=== PATIENT | male | born 1980 | race Hispanic/Latino ===

== ENCOUNTER 2020-05-30 18:24 | Emergency (ER) | payer OTHER, SELFPAY ==
--- NOTE | ~2020-05-30 | XR_ITS ---
EXAMINATION: XR chest 1V portable 05/30/2020 19:17 INDICATION: Shortness of breath. Anxiety. PROCEDURE: AP portable chest COMPARISON: No prior studies for comparison. FINDINGS: The lungs are clear. The cardiomediastinal silhouette is within normal limits. There are no pleural effusions. There is no pneumothorax suspected. IMPRESSION: 1: NO ACUTE CARDIOPULMONARY DISEASE. Reviewed, dictated and finalized at location A. [facility]
[2020-05-30 18:34] VITALS: BP 146/85; PULSE 83; RESP 16; TEMP 36.3; O2SAT 99
--- NOTE | 2020-05-30 18:51 | ECG_ITS ---
Measurements Intervals [place] Rate: 75 P: 15 IN: 166 QRS: 38 QRSD: 94 T: 30 QT: 373 QTc: 417 Interpretive Statements SINUS RHYTHM BASELINE ARTIFACT- III, AVL BORDERLINE ECG Electronically Signed On 05-31-2020 7:55:04 [employer] by Carlyle Nevarez D.O.
[2020-05-30 19:03] LABS: Basophils Percent Auto 0.3 % (0.2-1.2); Eosinophils Percent Auto 0.1 % (0-4.4); Hematocrit 41.9 % (42.0-52.0); Hemoglobin 14.5 g/dL (14.0-18.0); Immature Granulocyte Absolute 0.02 K/mm3 (0.00-0.031); Immature Granulocyte Percent A 0.3 % (0-0.5); Lymphocytes Absolute Auto 1.12 K/mm3 (0.9-3.2); Lymphocytes Percent Auto 14.3 % (18.3-44.2); Mean Corpuscular HGB Conc 34.6 g/dl (32-36); Mean Corpuscular Hemoglobin 29.5 pg (26-34); Mean Corpuscular Volume 85.2 fl (80-100); Mean Platelet Volume 10.2 fl (7.4-10.4); Monocytes Absolute Auto 0.3 K/mm3 (0.1-0.6); Monocytes Percent Auto 4.2 % (2.6-8.5); Neutrophils Absolute Auto 6.3 K/mm3 (1.3-6.7); Neutrophils Percent Auto 80.8 % (45.5-73.1); Platelet Count Result 292 k/mm3 (150-375); Red Blood Count 4.92 M/mm3 (4.6-6.20); Red Cell Distribution Width 12.1 % (11.5-14.5); White Blood Count 7.8 K/mm3 (4.5-10.0)
[2020-05-30 19:08] VITALS: O2SAT 99
[2020-05-30 19:18] LABS: Anion Gap 11 mmol/L (8-16); Blood Urea Nitrogen 13 mg/dL (9-20); Calcium 9.1 mg/dL (8.4-10.2); Carbon Dioxide 27 mmol/L (22-30); Chloride 102 mmol/L (98-107); Estimated CRCL calculation 105 ml/min; Estimated Glomerular Filt Rate > 60; Glucose 158 mg/dL (75-110); Sodium 140 mmol/L (137-145)
[2020-05-30 19:22] LABS: Potassium 3.6 mmol/L (3.4-5.0)
--- NOTE | 2020-05-30 20:18 | ED.GENADULT ---
HPI - General Adult General Chief complaint: Shortness of Breath/Dyspnea Stated complaint: shortness of breath Time Seen by Provider: 05/30/20 18:39 Source: patient Mode of arrival: ambulatory Limitations: no limitations History of Present Illness HPI narrative: Patient is a 39-year-old male who presents noting that earlier today he had some upper back pain that was self-limited caused him to be concerned that he may be developing respiratory infection patient does not have any URI symptoms and on arrival to emergency department notes that his symptoms have resolved he also denies sick contacts Related Data Allergies Allergy/AdvReac Type Severity Reaction Status Date / Time No Known Allergies Allergy Unverified 05/11/19 06:53 Review of Systems Review of Systems: All systems reviewed & are unremarkable except as noted in HPI and below PMFSH Past Medical History Medical History Anxiety Dyspnea Excessive daytime sleepiness Family History Family History (Updated 05/10/19 @ 17:15 by Ev Ugalde, [facility]) Other Cancer Social History Social History Smoking status: Never smoker Alcohol intake: never Exam Narrative: Exam Narrative: GENERAL: Well-appearing, well-nourished, and in no acute distress. HEAD: Normocephalic, atraumatic. EYES: PERRLA and EOMI. ENT: Nares clear, no rhinorrhea or epistaxis. Mucous membranes moist. CHEST: Clear to auscultation. No respiratory distress. No wheezes rales or rhonchi HEART: Regular rate and rhythm. No murmur heard. Normal peripheral pulses. ABDOMEN: Soft, nontender, nondistended EXTREMITIES: Normal range of motion. No edema. SKIN: Warm, dry, no rash. NEURO: No focal deficits. Alert and oriented x3. PSYCH: Normal mood and affect. Course Course Emergency Course: Patient in the room no distress no high risk changes in the blood work or imaging unsure to the etiology of his self-limited upper back pain that he experienced this morning Vital Signs Vital signs: Vital Signs Temperature 97.4 F L 05/30/20 18:34 Pulse Rate 83 05/30/20 18:34 Respiratory Rate 16 05/30/20 18:34 Blood Pressure 146/85 H 05/30/20 18:34 Pulse Oximetry 99 12/23/20 18:34 Temperature 97.4 F L 05/30/20 18:34 Pulse Rate 83 05/30/20 18:34 Respiratory Rate 16 05/30/20 18:34 Blood Pressure 146/85 H 05/30/20 18:34 Pulse Oximetry 99 05/30/20 19:08 Medical Decision Making MDM Narrative Medical decision making narrative: ABCs stable vital signs within normal limits no distress no pneumonia no hypoxemia no URI symptoms patient felt appropriate for discharge home Vital Signs Vital Signs: Vital Signs Temperature 97.4 F L 05/30/20 18:34 Pulse Rate 83 05/30/20 18:34 Respiratory Rate 16 05/30/20 18:34 Blood Pressure 146/85 H 05/30/20 18:34 Pulse Oximetry 99 05/30/20 18:34 Temperature 97.4 F L 05/30/20 18:34 Pulse Rate 83 05/30/20 18:34 Respiratory Rate 16 05/30/20 18:34 Blood Pressure 146/85 H 05/30/20 18:34 Pulse Oximetry 99 05/30/20 19:08 Lab Data Result diagrams: 05/30/20 18:55 05/30/20 18:55 Labs: Lab Results 05/30/20 05/30/20 Range/Units 18:55 18:55 WBC 7.8 (4.5-10.0) K/mm3 RBC 4.92 (4.6-6.20) M/mm3 Hgb 14.5 (14.0-18.0) g/dL Hct 41.9 L (42.0-52.0) % MCV 85.2 (80-100) fl MCH 29.5 (26-34) pg MCHC 34.6 (32-36) g/dl RDW 12.1 (11.5-14.5) % Plt Count 292 (150-375) k/mm3 MPV 10.2 (7.4-10.4) fl Immature Gran % (Auto) 0.3 (0-0.5) % Neut % (Auto) 80.8 H (45.5-73.1) % Lymph % (Auto) 14.3 L (18.3-44.2) % [place] % (Auto) 4.2 (2.6-8.5) % Eos % (Auto) 0.1 (0-4.4) % Baso % (Auto) 0.3 (0.2-1.2) % Lymph # (Auto) 1.12 (0.9-3.2) K/mm3 [place] # (Auto) 0.3 (0.1-0.6) K/mm3 Eos # (Auto) 0.0 (0-0.3) K/mm3 Baso # (Auto) 0.0 (0.0-0.1)
[2020-05-30 20:30] VITALS: BP 137/84; PULSE 78; RESP 16; TEMP 36.6; O2SAT 99
== END 2020-05-30 20:32 | disposition home or self-care (01) ==
PROVIDERS: Emergency Provider Emergency Medicine; PCP Internal Medicine
DX: M54.6 Pain in thoracic spine (principal); R94.31 Abnormal electrocardiogram [ECG] [EKG]
CPT/HCPCS: 36415; 71045; 80048; 85025; 93005; 99284